=== PATIENT | female | born 1980 | race Two or more races ===

== ENCOUNTER 2021-12-19 15:20 | Outpatient (REF) | payer OTHER, SELFPAY ==
--- NOTE | ~2021-12-19 | XR_ITS ---
EXAMINATION: XR CHEST CLINICAL INFORMATION: Shortness of breath and productive cough COMPARISON: None TECHNIQUE: 2 views of the chest were obtained. FINDINGS: The cardiac and mediastinal contours are normal. The lungs are clear. There is a 1 cm nodule at the right lung base. This may represent a nipple shadow. The lungs are otherwise clear. There is no pleural effusion or pneumothorax. Bony structures are unremarkable. XR/XR chest 2V IMPRESSION: 1 cm nodule at the right lung base. This may represent a nipple shadow. Follow-up chest x-ray with nipple markers recommended. No evidence of pneumonia.
== END 2021-12-19 15:21 | disposition home or self-care (01) ==
LOC: HO.XRAY 15:20
PROVIDERS: PCP Internal Medicine; Visit Provider Registered Nurse Community Health
DX: R06.02 Shortness of breath (principal); R05.9 Cough, unspecified
CPT/HCPCS: 71046

== ENCOUNTER 2021-12-25 12:58 | Outpatient (REF) | payer OTHER, SELFPAY ==
--- NOTE | ~2021-12-25 | XR_ITS ---
EXAMINATION: XR CHEST CLINICAL INFORMATION: Question pulmonary nodule COMPARISON: Previous chest x-ray 12/19/2021 TECHNIQUE: 2 views of the chest were obtained with nipple markers. FINDINGS: No significant abnormality is noted involving the heart, lungs, mediastinum, bony thorax or soft tissues. No pulmonary nodule is seen. XR/XR chest 2V IMPRESSION: Unremarkable examination. No pulmonary nodule.
== END 2021-12-25 12:59 | disposition home or self-care (01) ==
LOC: HO.XRAY 12:58
PROVIDERS: Absent Provider Internal Medicine; PCP Internal Medicine; Visit Provider Registered Nurse Community Health
DX: R91.1 Solitary pulmonary nodule (principal)
CPT/HCPCS: 71046

== ENCOUNTER 2023-07-15 11:37 | Outpatient (REF) | payer OTHER, SELFPAY ==
[2023-07-15 13:32] LABS: MANUAL DIFF FLAG NO
[2023-07-15 14:06] LABS: Basophils Percent Auto 0.4 % (0-2); Eosinophils Absolute Auto 0.2 X10*3/uL (0.0-0.4); Eosinophils Percent Auto 1.8 % (0-4); Hematocrit 39.4 % (37.0-47.0); Hemoglobin 12.6 g/dl (12.0-16.0); Imm Gran Abs Auto 0.03 X10*3/uL (0.00-0.03); Imm Gran Pct Auto 0.3 % (0.0-0.4); Lymphocytes Absolute Auto 2.6 X10*3/uL (1.2-4.9); Mean Corpuscular Hemoglobin 27.2 pg (27.0-33.0); Mean Corpuscular Volume 85.1 fL (80.0-98.0); Mean Platelet Volume 14.1 fL (9.4-12.3); Monocytes Absolute Auto 0.6 X10*3/uL (0.1-1.2); Monocytes Percent Auto 6.1 % (2-11); Neutrophils Absolute Auto 6.2 x10*3/uL (2.0-8.3); Neutrophils Percent Auto 64.4 % (45-73); Platelet Count 180 X10*3/uL (160-400); Red Blood Count 4.63 X10*6/uL (4.20-5.50); Red Cell Distribution Width 14.6 % (11.0-16.0); White Blood Count 9.6 X10*3/uL (4.8-10.8)
== END 2023-07-15 11:38 | disposition home or self-care (01) ==
LOC: HO.HHCL 11:37
PROVIDERS: Visit Provider Internal Medicine
DX: L93.0 Discoid lupus erythematosus (principal)
CPT/HCPCS: 36415; 85025

== ENCOUNTER 2024-01-05 15:09 | Outpatient (REF) | payer MEDICAID, SELFPAY ==
[2024-01-05 16:02] LABS: MANUAL DIFF FLAG NO
[2024-01-05 16:23] LABS: Basophils Percent Auto 0.4 % (0-2); Eosinophils Absolute Auto 0.1 X10*3/uL (0.0-0.4); Eosinophils Percent Auto 1.7 % (0-4); Hematocrit 35.6 % (37.0-47.0); Hemoglobin 11.5 g/dl (12.0-16.0); Imm Gran Abs Auto 0.02 X10*3/uL (0.00-0.03); Imm Gran Pct Auto 0.2 % (0.0-0.4); Lymphocytes Absolute Auto 2.5 X10*3/uL (1.2-4.9); Lymphocytes Percent Auto 29.7 % (20-40); Mean Corpuscular HGB Conc 32.3 g/dl (31.0-35.0); Mean Corpuscular Hemoglobin 26.1 pg (27.0-33.0); Mean Corpuscular Volume 80.9 fL (80.0-98.0); Monocytes Absolute Auto 0.4 X10*3/uL (0.1-1.2); Monocytes Percent Auto 4.2 % (2-11); Neutrophils Absolute Auto 5.4 x10*3/uL (2.0-8.3); Neutrophils Percent Auto 63.8 % (45-73); Platelet Count 192 X10*3/uL (160-400); Red Cell Distribution Width 16.7 % (11.0-16.0); White Blood Count 8.4 X10*3/uL (4.8-10.8)
[2024-01-05 16:48] LABS: Alanine Aminotransferase 19 U/L (0-31); Albumin Level 4.1 g/dL (3.5-5.0); Alkaline Phosphatase 52 U/L (39-117); Anion Gap 13 (12-20); Aspartate Amino Transferase 24 U/L (5-31); Bilirubin Direct 0.1 mg/dL (0.0-0.5); Bilirubin Total 0.3 mg/dL (0.0-1.0); Blood Urea Nitrogen 11 mg/dL (9-16); Calcium 9.3 mg/dL (8.4-10.2); Carbon Dioxide 24 mmol/L (22-29); Chloride 107 mmol/L (96-108); Cholesterol 187 mg/dL (<200); Estimated Glomerular Filt Rate > 60; Glucose Random 91 mg/dL (60-115); HDL Cholesterol 55 mg/dL (>40); LDL Cholesterol Calculated 122 mg/dL (<100); Sodium 140 mmol/L (135-145); Total Protein 8.4 g/dL (6.5-8.0); Triglycerides 51 mg/dL (<150)
[2024-01-06 04:39] LABS: ~HepC Num1 0.19 S/CO (0.00-0.79); ~Hepatitis C Antibody Nonreactive (Nonreactive)
[2024-01-06 05:22] LABS: Estimated Average Glucose 120 mg/dL; Hemoglobin A1C 125.8236 umol/L; Hemoglobin A1c % 5.8 % (<6.0)
[2024-01-08 18:49] LABS: HIV RNA PCR Qn Copies Not Detected Copies/mL; HIV RNA PCR Qn Log Copies Not Detected Log cps/mL
== END 2024-01-05 15:10 | disposition home or self-care (01) ==
LOC: HO.HHCL 15:09
PROVIDERS: Visit Provider Internal Medicine
DX: Z00.00 Encounter for general adult medical examination without abnormal findings (principal)
CPT/HCPCS: 36415; 80048; 80061; 80076; 83036; 85025; 86803; 87536; 87900

== ENCOUNTER 2024-01-26 09:22 | Outpatient (REF) | payer MEDICAID, SELFPAY ==
--- NOTE | ~2024-01-26 | MM_ITS ---
EXAMINATION: MM SCREENING DIGITAL BREAST TOMOSYNTHESIS, BILATERAL CLINICAL INFORMATION: Screening. Asymptomatic. COMPARISON: Mammography: This is a baseline mammogram TECHNIQUE: Digital breast tomosynthesis is performed in both the craniocaudal and mediolateral oblique views along with computer-aided detection (CAD). Synthesized 2D images are generated from the tomosynthesis. FINDINGS: The breasts are heterogeneously dense, which may obscure small masses (ACR BI-RADS breast composition Category c). There are no significant masses, abnormal calcifications, or other abnormalities. MM/MM tomosynthesis screening BI IMPRESSION: No mammographic evidence of malignancy. ASSESSMENT: BI-RADS BI-RADS 1 - Negative RECOMMENDATION: Routine annual mammography screening. 1 year F/U This examination should not preclude the clinical evaluation of a suspicious palpable abnormality. This patient's information was entered into a reminder system with a target due date for their next mammogram.
== END 2024-01-26 09:23 | disposition home or self-care (01) ==
LOC: HO.MAMMO 09:22
PROVIDERS: PCP Internal Medicine; Visit Provider Internal Medicine
DX: Z12.31 Encounter for screening mammogram for malignant neoplasm of breast (principal)
CPT/HCPCS: 77063; 77067

== ENCOUNTER → 2024-01-26 09:30 | Outpatient (BNV) | payer MEDICAID, SELFPAY | PROVIDERS: PCP Internal Medicine; Visit Provider Radiology Diagnostic Radiology | DX: Z12.31 Encounter for screening mammogram for malignant neoplasm of breast (principal) | CPT/HCPCS: 77063; 77067 ==

== ENCOUNTER 2024-02-19 13:05 | Outpatient (REF) | payer MEDICAID, SELFPAY ==
[2024-02-23 19:44] LABS: HPV mRNA E6/E7 Not Detected (Not Detected)
== END 2024-02-19 13:06 | disposition home or self-care (01) ==
LOC: HO.HHCLNP 13:05
PROVIDERS: Visit Provider Internal Medicine
DX: Z12.4 Encounter for screening for malignant neoplasm of cervix (principal)
CPT/HCPCS: 36415; 87624; 88175